=== PATIENT | female | born 1960 | race Caucasian/White ===

== ENCOUNTER 2024-07-13 12:46 | Emergency (ER) | payer MEDICARE ==
[~2024-07-13] VITALS: Ht 175.3 cm; Wt 83.0 kg
--- NOTE | 2024-07-13 12:57 | ERN ---
ED Note History of Present Illness Stated Complaint: OTHER Time Seen by MD: 12:48 Dictation: PATIENT IS A 64-YEAR-OLD FEMALE HERE WITH A HISTORY OF BIPOLAR AND SCHIZOPHRENIA AND DEPRESSION REQUESTING REFILLS ON SOME MEDICATION SHE HAS. SHE STATES I HAVE A ROOMMATE WHO IS CURRENTLY IN THE HOSPITAL DYING IN HIS INTUBATED IN [facility]. SHE SAYS I BEEN TAKING CARE OF HER AND HER DAUGHTER FOR MORE THAN A YEAR AND I HAVE NOT TAKEN TIME FOR MYSELF TO GO SEE MY DOCTOR. SHE SAID I AM TRYING TO GET OUT TO [place] SUNDAY TO GO HELP OUT WITH SOME OTHER ISSUES FOR MY FRIEND HOWEVER I HAVE NOT BEEN TO SEE MY DOCTOR FOR REFILLS. SHE DENIES SUICIDAL OR HOMICIDAL IDEATION. Allergies: Coded Allergies: alprazolam (Unverified Allergy, Unknown, 07/13/24) Past Medical History PSYCH History: anxiety, bipolar, depression, schizophrenia History: Not Applicable RN Note Reviewed/Agreed w/PFSH: Yes Review of System Dictation CONSTITUTIONAL: NEGATIVE EXCEPT FOR HPI REQUEST FOR REFILL HEAD/FACE: NEGATIVE EXCEPT FOR HPI EENT: NEGATIVE EXCEPT FOR HPI RESPIRATORY: NEGATIVE EXCEPT FOR HPI GASTROINTESTINAL/ABDOMINAL: NEGATIVE EXCEPT FOR HPI GENITOURINARY: NEGATIVE EXCEPT FOR HPI MUSCULOSKELETAL: NEGATIVE EXCEPT FOR HPI INTEGUMENTARY: NEGATIVE EXCEPT FOR HPI NEUROLOGICAL/PSYCH: NEGATIVE EXCEPT FOR HPI HEMATOLOGIC/LYMPHATIC: NEGATIVE EXCEPT FOR HPI ALL SYSTEMS NEGATIVE, EXCEPT NOTED ABOVE. 13 POINT REVIEW OF SYSTEMS ASSESSED AND ALL NEGATIVE EXCEPT FOR ABOVE. Initial Vital Sign VS Vital Signs Date Time Temp Pulse Resp B/P (MAP) Pulse Ox O2 Delivery O2 Flow Rate FiO2 07/13/24 13:18 97.5 68 18 126/107 98 Room Air 0 Physical Exam Dictation VITAL SIGNS REVIEWED GENERAL APPEARANCE: ALERT, ORIENTED X 3, PATIENT IS ANXIOUS AND TEARFUL REGARDING HER ROOMMATE HOWEVER DENIES SUICIDAL OR HOMICIDAL IDEATION. SHE HAS NO OTHER COMPLAINTS OTHER THAN REFILLS TILL SHE CAN SEE HER DOCTOR TOMORROW HEAD AND FACE: NON-TRAUMATIC. EYES: PERRL, PINK CONJUNCTIVAS, EYELID NO TRAUMA, ANTERIOR CHAMBER WITH ARCUS SENILIS. EARS: PINNAS INTACT AND NO SIGNS OF TRAUMA OR ERYTHEMA EAR CANALS CLEAR AND NO DISCHARGE TM NO ERYTHEMA NOSE: NO DISCHARGE, NO BLEEDING. OROPHARYNX: MOUTH NORMAL, TONGUE PINK, PHARYNX CLEAR,NO ERYTHEMA, TONSILS NO EXUDATES, NO ABSCESSES NOTED, MUCOUS MEMBRANE MOIST NECK: SUPPLE, NON-TENDER, NO THYROMEGALY, NO MASSES, NO JVD, NO BRUITS BREAST:DEFERRED CHEST:NO TENDERNESS, NO CREPITUS, NO PARADOXICAL MOVEMENT, NO RETRACTIONS LUNGS:CLEAR, WELL-VENTILATED, SYMMETRIC, NO RALES, NO WHEEZING, NO RHONCHI, NO STRIDOR, GOOD BREATH SOUNDS BILATERALLY HEART: REGULAR RATE, REGULAR RHYTHM, NO MURMUR, NO GALLOPS VASCULAR: NO PERIPHERAL EDEMA, ABDOMEN: SOFT, POSITIVE BOWEL SOUNDS, NONDISTENDED, NO GUARDING, NONTENDER, NO REBOUND, NO MASSES NO HEPATOMEGALY, NO SPLENOMEGALY, NO WALTERS'S SIGN, NO HERNIAS. RECTAL: DEFERRED GENITAL: DEFERRED NEUROLOGICAL: NORMAL SPEECH, MOTOR FUNCTION INTACT, SENSORY FUNCTION INTACT MUSCULOSKELETAL: NECK NONTENDER, FULL RANGE OF MOTION, BACK NONTENDER, FULL RANGE OF MOTION, EXTREMITIES: NONTENDER, FULL RANGE OF MOTION SKIN: COLOR PINK, DRY, NO TURGOR, NO RASH, NO LACERATIONS, NO ABRASIONS, NO CONTUSIONS. LYMPHATIC: DEFERRED Results (Laboratory/Radiology) Labs Reviewed?: Yes ED Course ED Course Vital Signs Date Time Temp Pulse Resp B/P (MAP) Pulse Ox O2 Delivery O2 Flow Rate FiO2 07/13/24 13:18 97.5 68 18 126/107 98 Room Air 0 NO LABS INDICATED, WE WILL GIVE PATIENT EMERGENT REFILL FOR SEVERAL DAYS AND HAVE HER FOLLOW UP WITH HER DOCTOR IN [facility] Medical Decision Making MDM MEDICAL DISCHARGE MAKING BASED ON REFILLS OF MEDICATIONS FOR THE NEXT 7-10 DAYS PATIENT WILL BE SEEING HER DOCTOR IN [facility] TOMORROW FOR REFILLS. DX & DISP Disposition: Discharge Departure Impression: Primary Impression: Encounter for medication refill Condition: Stable Scripts Lamotrigine (Lamotrigine) 100 Mg Tablet 1 TAB PO DAILY for 10 Days, #50 ML 0 Refills 100 MG TABLET COMPOUNDED IN 5 ML LIQUID, TAKE 5 ML DAILY Prov: OLGA LIDIA FISH UPHOLSTERY MECHANIC 07/13/24 Lurasidone HCl (Latuda) 120 Mg Tablet 120 MG PO DAILY for 10 Days, #10 TAB Prov: OLGA LIDIA FISH [employer]PHOLST[employer] MECHANIC 07/13/24 Additional Instructions: FOLLOW-UP WITH PRIMARY CARE PROVIDER IN 1 TO 2 DAYS. TAKE MEDICATIONS DIRECTED HERE IN THE EMERGENCY ROOM. OKAY TO CONTINUE HOME MEDICATIONS UNLESS OTHERWISE DISCUSSED DURING YOUR VISIT IN THE EMERGENCY ROOM TODAY. RETURN TO YOUR NEAREST EMERGENCY ROOM IF SYMPTOMS WORSEN OR IF THERE IS NO IMPROVEMENT. CALL 911 IF YOU NEED IMMEDIATE ASSISTANCE. TAKE TYLENOL OR MOTRIN [id number] NEEDED AND IF NO CONTRAINDICATIONS ARE PRESENT. INCREASE ORAL HYDRATION. A WOUND CULTURE OR URINE CULTURE WAS ORDERED HERE IN THE EMERGENCY ROOM DEPARTMENT PLEASE FOLLOW-UP WITH PRIMARY CARE PROVIDER AND ADVISE THEM TO GET REPEAT PORTS FROM OUR FACILITY. IF YOU HAD ANY PAOLO WRAP/SPLINTS THAT WERE APPLIED HERE, PLEASE DO NOT REMOVE THEM UNTIL YOU SEE YOUR PRIMARY CARE OR SPECIALTY. TAKE YOUR MEDICATIONS DIRECTED. FOLLOW UP WITH YOUR DOCTOR IN [facility] FOR REFILLS PRIOR TO MOVING TO [place] NEXT WEEK. Referrals: SELF,REFERRAL (PCP) Time of Disposition: 13:42 I have reviewed the case, and I agree with, Diagnosis and Plan OLGA LIDIA FISH UPHOLSTERY MECHANIC Jul 13, 2024 12:57
[2024-07-13] MEDS ORDERED: LURA120T PO (13:46)
[2024-07-13] MEDS ORDERED: LAMO100T16 PO (13:46)
[2024-07-13 13:52] VITALS: BP 126/98; PULSE 98; RESP 16; TEMP 98.3; O2SAT 98
--- NOTE | 2024-07-13 13:56 | NUR ---
PT ARRIVED TO ER NO COMPLAINTS PREP FOR TRAVEL AND REQUIRES RX PRIOR TO DEPART FIRST CRUSHER PROVIDED RX REQUIRED FOR TRAVEL AFTER ASSESMENT
== END 2024-07-13 14:01 | disposition home or self-care (01) ==
LOC: EDH 12:46
DX: F20.9 Schizophrenia, unspecified (principal); F31.9 Bipolar disorder, unspecified; Z76.0 Encounter for issue of repeat prescription
CPT/HCPCS: 99282